=== PATIENT | female | born 1975 | race African-American/Black ===

== ENCOUNTER 2017-01-26 20:29 | Emergency (ER) | payer MEDICAID ==
[~2017-01-26] VITALS: Ht 170.2 cm; Wt 84.0 kg
[~2017-01-26 20:29] MED LIST: ACET-2178 PO; ALBU6.7H INH; ANTIINFLAMMATORY PO; CEPH-569 PO; MUSCLE RELAXANT PO
[2017-01-26] MEDS ORDERED: ALBUTEROL (0.083%) 2.5MG/3ML NEB HHN STA (21:32)
[2017-01-26] MEDS ORDERED: IPRATROPIUM BROMIDE (0.02%) 0.5MG/2.5ML NEB HHN STA (21:32)
[2017-01-26] MEDS ORDERED: PREDNISONE 20MG TABLET PO STA (21:32)
[2017-01-26 21:59] LABS: BASOPHILS % 1.2 % (0.0-2.0); EOSINOPHILS % 2.1 % (0.0-5.0); HEMATOCRIT. 35.3 % (36.0-48.0); HEMOGLOBIN. 11.8 g/dL (12.0-16.0); LYMPHOCYTES % 32.8 % (20.0-50.0); MEAN CORPUSCULAR HEMOGLOBIN 28.5 pg (28.0-32.0); MEAN CORPUSCULAR HGB CONC 33.5 g/dL (31.0-37.0); MEAN CORPUSCULAR VOLUME 85.2 fL (81.0-99.0); MEAN PLATELET VOLUME 7.2 fl (7.4-10.4); MONOCYTES % 6.9 % (2.0-8.0); PLATELET 364 x1000/uL (130-400); RED BLOOD CELL COUNT 4.14 mill/uL (4.2-5.4); RED CELL DISTRIBUTION WIDTH 13.3 % (11.6-14.6); WHITE BLOOD COUNT 10.5 x1000/uL (4.5-11.0)
[2017-01-26 22:04] LABS: CHLORIDE 108 mEq/L (98-107); INDEX HEMOLYSI 1 (1-3); INDEX ICTERIC 1 (1-4); INDEX LIPEMIC 1 (1-3)
[2017-01-26 22:09] LABS: ALBUMIN 3.6 g/dL (3.4-5.0); ANION GAP 12; CARBON DIOXIDE 25 mEq/L (21-32); UREA NITROGEN BLOOD 10 mg/dL (7-21)
[2017-01-26 22:11] LABS: ALANINE AMINOTRANSFERASE 19 IU/L (13-61); eGFR > 60 mL/min (>60)
[2017-01-27 01:15] VITALS: BP 127/80
== END 2017-01-27 01:15 | disposition home or self-care (01) ==
LOC: ER 20:29
DX: J45.901 Unspecified asthma with (acute) exacerbation (principal); F17.200 Nicotine dependence, unspecified, uncomplicated; Z79.899 Other long term (current) drug therapy
CPT/HCPCS: 36415; 71010; 80053; 85025; 93005; 94640; 99285; J7512; J7611; Z7610

== ENCOUNTER 2017-01-27 16:38 | Emergency (ER) | payer MEDICAID ==
[~2017-01-27] VITALS: Ht 167.6 cm; Wt 85.0 kg
[2017-01-27 16:43] VITALS: BP 152/80
== END 2017-01-27 18:45 | disposition left against medical advice (07) ==
LOC: ER 16:39
DX: Z53.21 Procedure and treatment not carried out due to patient leaving prior to being seen by health care provider (principal)

== ENCOUNTER 2017-06-02 23:43 | Emergency (ER) | payer MEDICAID, OTHER ==
[~2017-06-02] VITALS: Ht 157.5 cm; Wt 89.0 kg
[2017-06-03] MEDS ORDERED: KETOROLAC 60MG/2ML VIAL IM STA (06:15)
[2017-06-03 06:32] LABS: BASOPHILS % 0.6 % (0.0-2.0); EOSINOPHILS % 2.5 % (0.0-5.0); HEMATOCRIT. 36.7 % (36.0-48.0); HEMOGLOBIN. 12.3 g/dL (12.0-16.0); MEAN CORPUSCULAR HEMOGLOBIN 28.5 pg (28.0-32.0); MEAN CORPUSCULAR VOLUME 84.8 fL (81.0-99.0); MEAN PLATELET VOLUME 6.9 fl (7.4-10.4); NEUTROPHILS % 50.9 % (40.0-76.0); PLATELET 364 x1000/uL (130-400); RED BLOOD CELL COUNT 4.33 mill/uL (4.2-5.4); RED CELL DISTRIBUTION WIDTH 13.3 % (11.6-14.6)
[2017-06-03 06:41] LABS: CARBON DIOXIDE 28 mEq/L (21-32); CHLORIDE 106 mEq/L (98-107)
[2017-06-03 07:55] LABS: CLARITY URINE CLEAR (CLEAR); COLOR URINE YELLOW (YELLOW); GLUCOSE URINE NEGATIVE (NEGATIVE); KETONES URINE TRACE (NEGATIVE); LEUKOCYTE ESTERASE URINE NEGATIVE (NEGATIVE); NITRITE URINE POSITIVE (NEGATIVE); OCCULT BLOOD URINE 3+ (NEGATIVE); PH URINE 5.5 (4.5-8.0); PROTEIN URINE NEGATIVE (NEGATIVE); SPECIFIC GRAVITY URINE 1.021 (1.005-1.030); UROBILINOGEN URINE 0.2 E.U./dL (0.2-1.0)
[2017-06-03 11:16] VITALS: BP 134/67
== END 2017-06-03 11:19 | disposition home or self-care (01) ==
LOC: ER 06-03 06:39
DX: N39.0 Urinary tract infection, site not specified (principal); M54.5 Low back pain; J45.909 Unspecified asthma, uncomplicated; F17.210 Nicotine dependence, cigarettes, uncomplicated; Z98.51 Tubal ligation status; Z88.6 Allergy status to analgesic agent
CPT/HCPCS: 36415; 72100; 80048; 81001; 81025; 85025; 96372; 99285; J1885; Z7610

== ENCOUNTER 2017-11-29 11:52 | Emergency (ER) | payer OTHER, MEDICAID ==
[~2017-11-29] VITALS: Ht 157.5 cm; Wt 89.0 kg
[2017-11-29 13:29] LABS: CLARITY URINE CLOUDY (CLEAR); COLOR URINE YELLOW (YELLOW); KETONES URINE NEGATIVE (NEGATIVE); LEUKOCYTE ESTERASE URINE 3+ (NEGATIVE); NITRITE URINE POSITIVE (NEGATIVE); OCCULT BLOOD URINE 2+ (NEGATIVE); PROTEIN URINE 1+ (NEGATIVE); SPECIFIC GRAVITY URINE 1.017 (1.005-1.030); UROBILINOGEN URINE 0.2 E.U./dL (0.2-1.0)
[2017-11-29] MEDS: SODIUM CHLORIDE 0.9% 1,000 ML IV ONE (13:56)
[2017-11-29] MEDS: KETOROLAC 30MG/ML VIAL IV STA (13:56)
[2017-11-29 14:20] LABS: BASOPHILS % 0.6 % (0.0-2.0); EOSINOPHILS % 0.5 % (0.0-5.0); HEMATOCRIT. 38.3 % (36.0-48.0); HEMOGLOBIN. 12.6 g/dL (12.0-16.0); LYMPHOCYTES % 23.4 % (20.0-50.0); MEAN CORPUSCULAR HEMOGLOBIN 28.3 pg (28.0-32.0); MEAN CORPUSCULAR VOLUME 86.1 fL (81.0-99.0); MEAN PLATELET VOLUME 7.4 fl (7.4-10.4); MONOCYTES % 5.9 % (2.0-8.0); NEUTROPHILS % 69.6 % (40.0-76.0); PLATELET 333 x1000/uL (130-400); RED BLOOD CELL COUNT 4.44 mill/uL (4.2-5.4)
[2017-11-29 14:25] LABS: CHLORIDE 107 mEq/L (98-107)
[2017-11-29 14:26] LABS: INR 1.1
[2017-11-29 14:35] LABS: CARBON DIOXIDE 27 mEq/L (21-32)
[2017-11-29] MEDS: CEFTRIAXONE 1 G PREMIX 50 ML IV ONE (15:15)
[2017-11-29 16:11] VITALS: BP 126/82
[2017-11-30 11:47] LABS: *BARBITURATES SCREEN URINE NEGATIVE (NEGATIVE); *BENZODIAZEPINES SCREEN URINE NEGATIVE (NEGATIVE); *COCAINE SCREEN URINE NEGATIVE (NEGATIVE); CANNABINOID URINE SCREEN NEGATIVE (NEGATIVE); METHADONE URINE SCREEN NEGATIVE (NEGATIVE); OPIATES URINE SCREEN NEGATIVE (NEGATIVE); PHENCYCLIDINE URINE SCREEN NEGATIVE (NEGATIVE)
[2017-11-30 11:48] LABS: *AMPHETAMINES SCREEN URINE PRESUMTIVE POSITIVE (NEGATIVE)
== END 2017-11-29 16:13 | disposition home or self-care (01) ==
LOC: ER 11:59
DX: N10 Acute pyelonephritis (principal); J45.909 Unspecified asthma, uncomplicated; Z88.6 Allergy status to analgesic agent
CPT/HCPCS: 36415; 80053; 80305; 81001; 81025; 85025; 85610; 87077; 87086; 87186; 96361; 96365; 96375; 99285; J0696; J1885; J7030; Z7610

== ENCOUNTER 2018-08-12 05:15 | Emergency (ER) | payer OTHER, MEDICAID ==
[~2018-08-12] VITALS: Ht 160 cm; Wt 83.0 kg
[~2018-08-12 05:15] MED LIST changes: +nicotine patch
[2018-08-12] MEDS ORDERED: VISCOUS LIDOCAINE 2% 15 ML UDC MM PRN (07:15)
[2018-08-12 08:00] VITALS: BP 121/74
== END 2018-08-12 08:28 | disposition home or self-care (01) ==
LOC: ER 07:24
DX: T28.8XXA Corrosion of internal genitourinary organs, initial encounter (principal); Y93.89 Activity, other specified; Y92.89 Other specified places as the place of occurrence of the external cause; Y99.8 Other external cause status; Z98.51 Tubal ligation status; Z90.89 Acquired absence of other organs; Z88.5 Allergy status to narcotic agent; Z79.899 Other long term (current) drug therapy
CPT/HCPCS: 81025; 99283; Z7610

== ENCOUNTER 2019-07-22 01:28 | Emergency (ER) | payer MEDICAID, OTHER ==
[~2019-07-22] VITALS: Ht 157.5 cm; Wt 90.0 kg
[2019-07-22] MEDS ORDERED: ALBUTEROL (0.083%) 2.5MG/3ML NEB HHN STA (02:53)
[2019-07-22] MEDS ORDERED: IPRATROPIUM BROMIDE (0.02%) 0.5MG/2.5ML NEB HHN STA (02:53)
[2019-07-22] MEDS ORDERED: PREDNISONE 20MG TABLET PO STA (02:53)
[2019-07-22 06:00] VITALS: BP 132/80
== END 2019-07-22 06:23 | disposition home or self-care (01) ==
LOC: ER 01:53
DX: J45.901 Unspecified asthma with (acute) exacerbation (principal); Z88.6 Allergy status to analgesic agent; Z98.51 Tubal ligation status
CPT/HCPCS: 71045; 81025; 93005; 94640; 99283; J7512; J7611; Z7610

== ENCOUNTER 2019-10-14 03:36 | Emergency (ER) | payer OTHER, MEDICAID ==
[~2019-10-14] VITALS: Ht 160 cm; Wt 93.6 kg
[~2019-10-14 03:36] MED LIST changes: -ACET-2178 PO; -ALBU6.7H INH; +ALBU6.7H11 INH; +TOPUD PO
[2019-10-14] MEDS ORDERED: ALBUTEROL (0.083%) 2.5MG/3ML NEB HHN STA (04:43)
[2019-10-14] MEDS ORDERED: HYDROCODONE/ACETAMINOPHEN 5/325MG TABLET PO STA (04:43)
[2019-10-14] MEDS ORDERED: IPRATROPIUM BROMIDE (0.02%) 0.5MG/2.5ML NEB HHN STA (04:43)
[2019-10-14 05:04] LABS: BASOPHILS % 0.4 % (0.0-2.0); EOSINOPHILS % 1.7 % (0.0-5.0); HEMATOCRIT. 37.4 % (36.0-48.0); HEMOGLOBIN. 12.7 g/dL (12.0-16.0); LYMPHOCYTES % 28.8 % (20.0-50.0); MEAN CORPUSCULAR HEMOGLOBIN 29.3 pg (28.0-32.0); MEAN CORPUSCULAR VOLUME 86.3 fL (81.0-99.0); MEAN PLATELET VOLUME 7.3 fl (7.4-10.4); MONOCYTES % 6.2 % (2.0-8.0); NEUTROPHILS % 62.9 % (40.0-76.0); PLATELET 377 x1000/uL (130-400); RED BLOOD CELL COUNT 4.33 mill/uL (4.2-5.4); RED CELL DISTRIBUTION WIDTH 13.2 % (11.6-14.6)
[2019-10-14 05:15] LABS: CHLORIDE 108 mEq/L (98-107)
[2019-10-14 06:25] LABS: HCG SCREEN NEGATIVE
[2019-10-14 06:57] VITALS: BP 122/71
== END 2019-10-14 07:00 | disposition home or self-care (01) ==
LOC: ER 03:36
DX: R07.9 Chest pain, unspecified (principal); J45.909 Unspecified asthma, uncomplicated; R06.03 Acute respiratory distress; Z88.6 Allergy status to analgesic agent; Z98.51 Tubal ligation status; Z98.890 Other specified postprocedural states
CPT/HCPCS: 36415; 71045; 80053; 83880; 84484; 84703; 85025; 85379; 93005; 94640; 99284; J7611; Z7610

== ENCOUNTER 2022-11-15 00:11 | Emergency (ER) | payer OTHER, BC ==
[~2022-11-15] VITALS: Ht 160 cm; Wt 95.0 kg
[~2022-11-15 00:11] MED LIST changes: -ALBU6.7H11 INH; +ALBU6.7H15 INH
[2022-11-15] MEDS ORDERED: ONDANSETRON HCL 4MG/2ML INJ IM STA (05:00)
[2022-11-15] MEDS ORDERED: KETOROLAC 60MG/2ML VIAL IM STA (05:00)
[2022-11-15] MEDS: KETOROLAC 30MG/ML VIAL IV NR ×2 (05:38→06:07)
[2022-11-15] MEDS: ONDANSETRON HCL 4MG/2ML INJ IV NR ×2 (05:39→06:07)
[2022-11-15] MEDS ORDERED: LACTULOSE 20G/30ML UDC PO ONE (05:45)
[2022-11-15 06:00] LABS: CLARITY URINE CLEAR (CLEAR); COLOR URINE YELLOW (YELLOW); KETONES URINE NEGATIVE (NEGATIVE); LEUKOCYTE ESTERASE URINE TRACE (NEGATIVE); NITRITE URINE NEGATIVE (NEGATIVE); OCCULT BLOOD URINE NEGATIVE (NEGATIVE); PROTEIN URINE NEGATIVE (NEGATIVE); SPECIFIC GRAVITY URINE 1.014 (1.005-1.030); UROBILINOGEN URINE 0.2 E.U./dL (0.2-1.0)
[2022-11-15 06:07] VITALS: BP 164/94
[2022-11-15 06:10] LABS: BASOPHILS % 0.9 % (0.0-2.0); EOSINOPHILS % 2.8 % (0.0-5.0); HEMATOCRIT. 38.7 % (36.0-48.0); HEMOGLOBIN. 13.2 g/dL (12.0-16.0); LYMPHOCYTES % 34.2 % (20.0-50.0); MEAN CORPUSCULAR HEMOGLOBIN 29.4 pg (28.0-32.0); MEAN CORPUSCULAR VOLUME 85.9 fL (81.0-99.0); MONOCYTES % 5.9 % (2.0-8.0); NEUTROPHILS % 56.2 % (40.0-76.0)
[2022-11-15 06:42] LABS: HCG SCREEN NEGATIVE
[2022-11-15 07:02] LABS: CHLORIDE 106 mEq/L (98-107)
[2022-11-15] MEDS ORDERED: NITR-82 PO (07:02)
[2022-11-15] MEDS ORDERED: POLY17PO3 PO (07:02)
[2022-11-15 07:17] LABS: PLATELET 473 x1000/uL (130-400)
== END 2022-11-15 08:20 | disposition home or self-care (01) ==
LOC: ER 00:11
DX: R10.9 Unspecified abdominal pain (principal); K59.00 Constipation, unspecified; N39.0 Urinary tract infection, site not specified; Z88.6 Allergy status to analgesic agent; Z98.51 Tubal ligation status; Z87.19 Personal history of other diseases of the digestive system; Z87.440 Personal history of urinary (tract) infections; Z98.890 Other specified postprocedural states
CPT/HCPCS: 36415; 74176; 80053; 81003; 81025; 83690; 84703; 85025; 96374; 96375; 99284; J1885; J2405; Z7610

== ENCOUNTER 2022-11-22 07:29 | Emergency (ER) | payer OTHER, MEDICAID ==
[~2022-11-22] VITALS: Ht 165.1 cm; Wt 89.0 kg
[~2022-11-22 07:29] MED LIST changes: +NITR-82 PO; +POLY17PO3 PO
[2022-11-22] MEDS ORDERED: LEVETIRACETAM 500MG PREMIX 100 ML IV ONE (08:00)
[2022-11-22 08:51] LABS: BASOPHILS % 0.9 % (0.0-2.0); EOSINOPHILS % 2.9 % (0.0-5.0); HEMATOCRIT. 37.4 % (36.0-48.0); HEMOGLOBIN. 12.6 g/dL (12.0-16.0); LYMPHOCYTES % 34.3 % (20.0-50.0); MEAN CORPUSCULAR VOLUME 86.2 fL (81.0-99.0); MONOCYTES % 6.7 % (2.0-8.0); NEUTROPHILS % 55.2 % (40.0-76.0); PLATELET 402 x1000/uL (130-400); RED BLOOD CELL COUNT 4.34 mill/uL (4.2-5.4); RED CELL DISTRIBUTION WIDTH 13.8 % (11.6-14.6)
[2022-11-22 09:00] LABS: CHLORIDE 107 mEq/L (98-107)
[2022-11-22 10:15] VITALS: BP 132/75
== END 2022-11-22 11:05 | disposition home or self-care (01) ==
LOC: ER 07:29
DX: Z00.00 Encounter for general adult medical examination without abnormal findings (principal); Z88.6 Allergy status to analgesic agent; Z98.51 Tubal ligation status; Z87.440 Personal history of urinary (tract) infections; Z98.890 Other specified postprocedural states
CPT/HCPCS: 36415; 70450; 80053; 85025; 96365; 96366; 99284; J1953; Z7610

== ENCOUNTER 2024-06-15 13:39 | Emergency (ER) | payer OTHER ==
[~2024-06-15] VITALS: Ht 157.5 cm; Wt 93.0 kg
[2024-06-15 13:57] VITALS: O2SAT 100
[2024-06-15] MEDS: HYDROCODONE/ACETAMINOPHEN 10/325MG TABLET PO ONE (14:45)
[2024-06-15] MEDS: KETOROLAC 30MG/ML VIAL IM ONE (14:45)
[2024-06-15] MEDS ORDERED: CYCL5TAB MT (14:54)
[2024-06-15] MEDS ORDERED: DICL75TA5 MT (14:54)
[2024-06-15 15:09] VITALS: BP 147/89; PULSE 88; RESP 16; TEMP 98
== END 2024-06-15 15:11 | disposition home or self-care (01) ==
LOC: ER 14:07
DX: M54.40 Lumbago with sciatica, unspecified side (principal); F19.90 Other psychoactive substance use, unspecified, uncomplicated; Z90.49 Acquired absence of other specified parts of digestive tract; Z90.89 Acquired absence of other organs; Z98.51 Tubal ligation status; Z79.899 Other long term (current) drug therapy
CPT/HCPCS: 99283; 81025; 96372; J1885